=== PATIENT | female | born 1960 | race African-American/Black ===

== ENCOUNTER 2016-11-06 10:11 | Emergency (ER) | payer MEDICAID, MEDICARE, OTHER ==
[~2016-11-06] VITALS: Ht 162.6 cm; Wt 80.7 kg
[~2016-11-06 10:11] MED LIST: ACETAMINOPHEN-1 EAC1 ORAL; BENADRYL25 MG ORAL; DIPHENHYDRAMINE25 M1 ORAL; IBUPROFEN600 MG ORAL; NORCO 5-325 TA1 EAC1 ORAL; NORCO1 E1 ORAL; PERPHEN AMITRI PO; PERPHEN-AMITRI1 EAC1 PO; PERPHEN-AMITRI1 EAC3 PO; TRAMADOL HCL50 MG PO; TRIAVIL PO
[2016-11-06] MEDS ORDERED: PERPHEN-AMITRI1 EAC3 PO (10:31)
[2016-11-06 10:37] VITALS: BP 128/78
--- NOTE | 2016-11-06 11:22 | Emergency Room Report ---
History of Present Illness General Chief Complaint: Medication Refill Source: Patient Present Illness HPI 56-year-old female presents to ED requesting medication refill. Patient states she has history of depression and take psychiatric medications. States she ran out of medication 2 months ago and requires refill. Patient states he feels depressed but denies any suicidal or homicidal ideation. Denies hearing voices. Denies drug or alcohol use. No aggravating relieving factors. Denies any other associated symptoms Allergies: Coded Allergies: PENICILLIN G (Verified Allergy, Severe, RASH, 05/29/12) Patient History Past Medical History: psych hx Past Surgical History: none Pertinent Family History: none Social History: Denies: alcohol use, drug use, smoking Now: No Immunizations: UTD Reviewed Nursing Documentation: PMH: Agreed, PSxH: Agreed Nursing Documentation-PMH Past Medical History: No History, Except For History Of Psychiatric Problem: Yes - depression Hx Neurological Problems: No - Chronic knee pain Review of Systems All Other Systems: negative except mentioned in HPI Physical Exam Vital Signs Date Time Temp Pulse Resp B/P Pulse Ox O2 Delivery O2 Flow Rate FiO2 11/06/16 10:19 98.2 81 16 108/72 98 Room Air Sp02 EP Interpretation: reviewed, normal General Appearance: no apparent distress, alert, GCS 15, non-toxic Head: normocephalic, atraumatic Eyes: bilateral eye PERRL, bilateral eye normal inspection ENT: hearing grossly normal, normal pharynx, no angioedema, normal voice Neck: full range of motion, supple/symm/no masses Respiratory: chest non-tender, lungs clear, normal breath sounds, speaking full sentences Cardiovascular #1: regular rate, rhythm, no edema Cardiovascular #2: 2+ carotid (R), 2+ carotid (L), 2+ radial (R), 2+ radial (L) , 2+ dorsalis pedis (R), 2+ dorsalis pedis (L) Gastrointestinal: normal bowel sounds, non tender, soft, non-distended, no guarding, no rebound Rectal: deferred Genitourinary: normal inspection, no CVA tenderness Musculoskeletal: back normal, gait/station normal, normal range of motion, non- tender Neurologic: alert, oriented x3, responsive, motor strength/tone normal, sensory intact, speech normal Psychiatric: judgement/insight normal, memory normal, no suicidal/homicidal ideation, depressed affect, anxious Suicide Risk Assessment: Suicidal Ideation: No Had intent to initiate attempt: No Pt's plan for suicide attempt: No Has means to complete attempt: No Reflexes: 3+ bicep (R), 3+ bicep (L), 3+ tricep (R), 3+ tricep (L), 3+ knee (R) , 3+ knee (L) Skin: normal color, no rash, warm/dry, well hydrated Lymphatic: no adenopathy Medical Decision Making Diagnostic Impression: Primary Impression: Encounter for medication refill Additional Impression: Depression Qualified Codes: F32.9 - Major depressive disorder, single episode, unspecified ER Course 56-year-old female presents to ED refill of her medication. History of depression hospital course: After initial history and physical, I reviewed prior visits which document patient being prescribed medication. No evidence of SI or HI at this time Given that, I tell patient I will refill her medication Diagnosis-encounter for medication refill, depression Stable and discharged to home with prescription for perphenazine/amitryptaline. Followup with PMD. Return to ED if symptoms recur or worsen Last Vital Signs Date Time Temp Pulse Resp B/P Pulse Ox O2 Delivery O2 Flow Rate FiO2 11/06/16 10:37 89 16 128/78 99 Room Air 11/06/16 10:37 98.3 Status: improved Disposition: HOME, SELF-CARE Condition: Stable Scripts Perphenazine/Amitriptyline Hcl (PERPHEN-AMITRIP 4 MG-25 MG TAB) 1 Each Tablet 1 EACH PO TID, #90 TAB Prov: SUN CROSS M.D. 11/06/16 Referrals: NOT CHOSEN [facility]/,REFERRING (PCP) Patient Instructions: Medicine Refill at the Emergency Department SUN CROSS M.D. Nov 06, 2016 11:22
== END 2016-11-06 10:49 | disposition home or self-care (01) ==
LOC: EMR 10:36
DX: Z76.0 Encounter for issue of repeat prescription (principal); F32.9 Major depressive disorder, single episode, unspecified; M25.569 Pain in unspecified knee; G89.29 Other chronic pain; Z88.0 Allergy status to penicillin
CPT/HCPCS: 99283

== ENCOUNTER 2016-12-11 10:15 | Emergency (ER) | payer MEDICAID ==
[~2016-12-11] VITALS: Ht 162.6 cm; Wt 77.1 kg
[2016-12-11 10:46] VITALS: BP 121/88
[2016-12-11] MEDS ORDERED: IBUPROFEN600 MG ORAL (11:26)
[2016-12-11] MEDS ORDERED: PERPHEN-AMITRI1 EAC3 PO (11:26)
[2016-12-11 11:40] VITALS: BP 121/88
--- NOTE | 2016-12-12 07:46 | Emergency Room Report ---
History of Present Illness General Chief Complaint: Medication Refill Source: Patient Present Illness HPI Patient presents with request of medication refill Reports that she has depression and psychiatric diagnoses she has tried multiple outlets however has not been able to refill her medications And therefore presents for running out of her medications Denies any suicidal or homicidal thoughts denies any chest pain or short of breath she reports that she also has chronic low back pain and takes Motrin for that Denies any recent fall or trauma Allergies: Coded Allergies: PENICILLIN G (Verified Allergy, Severe, RASH, 05/29/12) Patient History Past Medical History: see triage record Pertinent Family History: none Last Menstrual Period: irreg Reviewed Nursing Documentation: PMH: Agreed, PSxH: Agreed Nursing Documentation-PMH Past Medical History: No History, Except For History Of Psychiatric Problem: Yes - Depression Hx Neurological Problems: No - Chronic knee pain Review of Systems All Other Systems: negative except mentioned in HPI Physical Exam Vital Signs Date Time Temp Pulse Resp B/P Pulse Ox O2 Delivery O2 Flow Rate FiO2 12/11/16 10:46 98.2 87 16 121/88 100 Room Air Sp02 EP Interpretation: reviewed, normal General Appearance: well appearing, no apparent distress Head: normocephalic, atraumatic Eyes: bilateral eye EOMI, bilateral eye PERRL ENT: hearing grossly normal, normal pharynx, TMs + canals normal, uvula midline Neck: full range of motion, supple, no meningismus, no bony tend Respiratory: lungs clear, normal breath sounds, no rhonchi, no respiratory distress, no retraction, no accessory muscle use Cardiovascular #1: normal peripheral pulses, regular rate, rhythm, no edema, no gallop, no JVD, no murmur Gastrointestinal: normal bowel sounds, non tender, soft, no mass, no organomegaly, non-distended, no guarding, no hernia, no pulsatile mass, no rebound Genitourinary: no CVA tenderness Musculoskeletal: normal inspection Neurologic: oriented x3, responsive, histology assistant III-XII nml as tested, motor strength/ tone normal, sensory intact Psychiatric: mood/affect normal - Denies any suicidal or homicidal thoughts Skin: normal color, no rash, warm/dry, palpation normal Lymphatic: normal inspection, no adenopathy Medical Decision Making Diagnostic Impression: Primary Impression: Depression Additional Impressions: Chronic knee pain Back pain ER Course It appears the patient has been doing better clinically with her medications Therefore the benefits of continuing her medication appear to outweigh discharge without medication Patient appears to be attempting multiple avenues of obtaining her psychiatric medications And understands the emergency department should not be her first attempt Last Vital Signs Date Time Temp Pulse Resp B/P Pulse Ox O2 Delivery O2 Flow Rate FiO2 12/11/16 11:40 98.2 16 121/88 100 Room Air 12/11/16 10:46 87 Status: improved Disposition: HOME, SELF-CARE Condition: Improved Scripts Ibuprofen* (MOTRIN*) 600 Mg Tablet 600 MG ORAL Q8H Y for For Pain, #20 TAB 0 Refills Prov: AYESHA SILVA D.O. 12/11/16 Perphenazine/Amitriptyline Hcl (PERPHEN-AMITRIP 4 MG-25 MG TAB) 1 Each Tablet 1 EACH PO DAILY, #20 TAB Prov: AYESHA SILVA D.O. 12/11/16 Referrals: NON PHYSICIAN (PCP) Patient Instructions: Depression, Adult, [id number] Additional Instructions: Patient is provided with the discharge instructions notified to follow up with primary doctor in the next 2-3 days otherwise return to the er with any worsening symptoms. Please note that this report is being documented using [employer] technology. This can lead to erroneous entry secondary to incorrect interpretation by the dictating instrument. AYESHA SILVA D.O. Dec 12, 2016 07:46
== END 2016-12-11 11:40 | disposition home or self-care (01) ==
LOC: EMR 11:15
DX: Z76.0 Encounter for issue of repeat prescription (principal); F32.9 Major depressive disorder, single episode, unspecified; Z88.0 Allergy status to penicillin; G89.29 Other chronic pain; M25.569 Pain in unspecified knee; M54.5 Low back pain
CPT/HCPCS: 99284

== ENCOUNTER → 2017-11-27 | Emergency (ER) | payer MEDICAID ==
[~2017-11-27] VITALS: Ht 162.6 cm; Wt 72.6 kg
[~2017-11-27] MED LIST changes: +AMITRIPTYLINE100 MG ORAL
[2017-11-27 11:47] VITALS: BP 153/90
--- NOTE | 2017-11-27 12:04 | Emergency Room Report ---
History of Present Illness General Chief Complaint: Medication Refill Present Illness HPI 57 yo female patient presents to ER requesting medication refill. Patient requesting refill of amitriptyline for depression. Reports taking 10 mg once a day. Reports has been unable to reach primary care provider. States she will followup with them next week. Also requesting Benadryl refill. Takes for itchy skin; reports lives in a community house. Denies rash, bleeding, ecchymosis, edema, erythema. Denies fever, chest pain, SOB. Denies thoughts of hurting herself or others. Denies drug or alcohol use. Allergies: Coded Allergies: PENICILLIN G (Verified Allergy, Severe, RASH, 05/29/12) Patient History Past Medical History: see triage record Reviewed Nursing Documentation: PMH: Agreed; PSxH: Agreed Nursing Documentation-PMH Hx Neurological Problems: No - Chronic knee pain Review of Systems All Other Systems: negative except mentioned in HPI Physical Exam Vital Signs Date Time Temp Pulse Resp B/P (MAP) Pulse Ox O2 Delivery O2 Flow Rate FiO2 11/27/17 11:40 98.1 90 18 153/90 99 Room Air 98.1 Sp02 EP Interpretation: reviewed, normal General Appearance: well appearing, no apparent distress, alert, GCS 15, non- toxic Head: normocephalic, atraumatic Eyes: bilateral eye normal inspection, bilateral eye PERRL ENT: hearing grossly normal, normal pharynx, no angioedema, normal voice, uvula midline, moist mucus membranes Neck: full range of motion Respiratory: lungs clear, normal breath sounds, no rhonchi, no respiratory distress, no accessory muscle use, no wheezing, speaking full sentences Cardiovascular #1: regular rate, rhythm, no edema Musculoskeletal: back normal, digits/nails normal, gait/station normal, normal range of motion, non-tender Neurologic: alert, oriented x3, responsive, motor strength/tone normal, sensory intact Psychiatric: mood/affect normal Skin: no rash Lymphatic: no adenopathy Medical Decision Making PA Attestation Dr. Damon is my supervising Physician whom patient management has been discussed with. Diagnostic Impression: Primary Impression: Encounter for medication refill ER Course Pt. presents to the ED requesting medication refill. Multiple differentials considered. Vital signs: are WNL, pt. is afebrile. Blood pressure mildly elevated. Denies chest pain, VENTURA, vision changes, abdominal pain. Instructed to followup with PCP for treatment. ORDERS: none required at this time, the diagnosis is clinical CURES report negative ED COURSE: Patient requesting refill of Amitriptyline and Benadryl medication. Repots current provider is a traveling provider and has not yet returned to area for followup appointment. Patient previously seen in ER for similar requests. Consult with Dr. Retino. ALBA to refill prescription. Informed patient that ER does not normally provide refill prescriptions, patient needs followup with PCP for treatment and monitoring of medication. Patient reports understanding. Do not believe patient is a danger to herself or others. DISCHARGE: At this time pt is stable for d/c to home. Patient is resting comfortably, in no acute distress, nontoxic appearing, talking without difficulty, smiling. Patient to take medications as instructed Will provide with patient care instructions and any necessary prescriptions. Care plan and follow-up instructions provided. Patient instructed to follow-up with primary care provider in 3 - 5 days. Patient questions asked and answered. Patient reports understanding and agreement to treatment plan. ER precautions given. Patient instructed to return to ER immediately for any new or worsening of symptoms including but not limited to increasing SOB, persistent fever. Last Vital Signs Date Time Temp Pulse Resp B/P (MAP) Pulse Ox O2 Delivery O2 Flow Rate FiO2 11/27/17 11:47 98.1 18 153/90 99 Room Air 98.1 11/27/17 11:40 90 Disposition: HOME, SELF-CARE Condition: Stable Scripts Diphenhydramine Hcl* (BENADRYL*) 25 Mg Capsule 25 MG ORAL Q6H PRN for Itching for 5 Days, #20 CAP Prov: Dinh Connelly 11/27/17 Perphenazine/Amitriptyline Hcl (PERPHEN-AMITRIP 4 MG-25 MG TAB) 1 Each Tablet 1 EACH PO DAILY for 5 Days, #5 TAB Prov: Dinh Connelly 11/27/17 Patient Instructions: Medicine Refill at the Emergency Department Additional Instructions: Followup with primary care provider in 3 -5 days. ER not able to fill prescriptions because requires followup and monitoring by primary care provider. Take medications as directed. Patient questions asked and answered. ER precautions given, patient instructed to return to ER immediately for any new or worsening of symptoms. Dinh Connelly Nov 27, 2017 12:04
[2017-11-27 12:50] VITALS: BP 148/89
== END | disposition home or self-care (01) ==
LOC: EMR 12:11
DX: Z76.0 Encounter for issue of repeat prescription (principal); Z88.0 Allergy status to penicillin; F32.9 Major depressive disorder, single episode, unspecified
CPT/HCPCS: 99284

== ENCOUNTER 2018-07-01 15:50 | Emergency (ER) | payer MEDICAID ==
[~2018-07-01] VITALS: Ht 162.6 cm; Wt 76.2 kg
[2018-07-01 16:13] VITALS: BP 159/88
--- NOTE | 2018-07-01 16:31 | Emergency Room Report ---
History of Present Illness General Chief Complaint: Medication Refill Source: Patient Present Illness HPI 57-year-old female presents to the emergency department complaining of multiple complaints. Patient reports pain, tenderness and soreness to the posterior ankle of the right foot which radiates down to the heel. Patient reports she has been doing a lot of excessive walking and at the end of days when she started noticing her symptoms. Patient denies taking medications for this. Patient also is stating that she has some right ear pain in addition to needing medication refills. Patient denies fevers, chills, ear discharge, changes in hearing, appreciable trauma or fall. No erythema of the ankle. denies open wounds. Allergies: Coded Allergies: PENICILLIN G (Verified Allergy, Severe, RASH, 05/29/12) IBUPROFEN (Verified Allergy, Unknown, 07/01/18) Patient History Past Medical History: see triage record Past Surgical History: none Pertinent Family History: none Reviewed Nursing Documentation: PMH: Agreed; PSxH: Agreed Nursing Documentation-PMH Hx Neurological Problems: No - depression Review of Systems All Other Systems: negative except mentioned in HPI Physical Exam Vital Signs Date Time Temp Pulse Resp B/P (MAP) Pulse Ox O2 Delivery O2 Flow Rate FiO2 07/01/18 16:02 98.2 77 18 159/88 97 Room Air Sp02 EP Interpretation: reviewed, normal General Appearance: no apparent distress, alert, GCS 15, non-toxic Head: normocephalic, atraumatic Eyes: bilateral eye normal inspection, bilateral eye PERRL ENT: hearing grossly normal, normal voice, TMs + canals normal, uvula midline, other - Right Canal is erythematous and macerated in appearance with purulent d/c noted, no TM involvement, no evidence of mastoiditis or preauricular LAD on PE Neck: full range of motion Respiratory: chest non-tender, lungs clear, normal breath sounds, speaking full sentences Cardiovascular #1: regular rate, rhythm, no edema, normal capillary refill Musculoskeletal: back normal, gait/station normal, normal range of motion, tender - posterior achilles ttp-mild, no swelling, bruising, obvious deformity or increased laxity. pt. ambulatory and can bear weight Neurologic: alert, oriented x3, responsive, motor strength/tone normal, sensory intact, speech normal, grossly normal Psychiatric: judgement/insight normal, memory normal, mood/affect normal, no suicidal/homicidal ideation, no delusions Skin: normal color, no rash, warm/dry, well hydrated Medical Decision Making PA Attestation Dr. Damon is my supervising Physician whom patient management has been discussed with. Diagnostic Impression: Primary Impression: Otitis externa Qualified Codes: H60.501 - Unspecified acute noninfective otitis externa, right ear Additional Impression: Achilles tendinitis, right leg ER Course 57-year-old female presents to the emergency department complaining of multiple complaints. Patient reports pain, tenderness and soreness to the posterior ankle of the right foot which radiates down to the heel. Patient reports she has been doing a lot of excessive walking and at the end of days when she started noticing her symptoms. Patient denies taking medications for this. Patient also is stating that she has some right ear pain in addition to needing medication refills. Patient denies fevers, chills, ear discharge, changes in hearing, appreciable trauma or fall. Pt. reports needs refill of anti-psych/ depressant and Ativan. Pt. denies Right Canal is erythematous and macerated in appearance with purulent d/c noted, no TM involvement, no evidence of mastoiditis or preauricular LAD on PE Ddx considered but are not limited to OM, OE, mastoiditis, TM perforation, FB, plantar fasciitis, tendonitis, ankle sprain, fracture, SI/HI, psychotic break just to name a few. Vital signs: are WNL, pt. is afebrile H&PE are most consistent with otitis externa, and tendonitis- imaging not warranted at this time, no bony ttp, no hx of fall and pt. herself does not suspect fracture. pr. does not meet [place] ankle criteria. ORDERS: none required at this time, the diagnosis is clinical -OTOSCOPY: Right Canal is erythematous and macerated in appearance with purulent d/c noted, no TM involvement, no evidence of mastoiditis or preauricular LAD on PE ED INTERVENTIONS: None required at this time. -Tylenol PO -Buspar--pt. requesting anti-anxiety medication. d/w pt. that I do not see that she is regularly rx'd Ativan and she needs to have this prescribed to her by a PCP or psychiatrist who will be handling her medication management. -PT will be given resources for mental health and primary care. -- I reviewed this pt. CURES report and there are no active prescriptions for controlled substances in [place] at this time. She also is not regularly rx'd ativan , I only see one prescription in the last 12 months. DISCHARGE: At this time pt. is stable for d/c to home. With Otic ABX. Will provide printed patient care instructions, and any necessary prescriptions. Care plan and follow up instructions have been discussed with the patient prior to discharge. Last Vital Signs Date Time Temp Pulse Resp B/P (MAP) Pulse Ox O2 Delivery O2 Flow Rate FiO2 07/01/18 16:13 98.2 78 18 159/88 97 Room Air Disposition: HOME, SELF-CARE Condition: Stable Scripts Ofloxacin (OFLOXACIN) 5 Ml Drops 3 DROP OT BID for 7 Days, #5 ML Prov: Mylene Jordan 07/01/18 Acetaminophen* (TYLENOL EXTRA STRENGTH*) 500 Mg Tablet 500 MG ORAL Q8H PRN for Prn Headache/Temp > 101, #20 TAB 0 Refills Prov: Mylene Jordan 07/01/18 Perphenazine/Amitriptyline Hcl (PERPHEN-AMITRIP 4 MG-25 MG TAB) 1 Each Tablet 1 EACH PO TID, #30 TAB Prov: Mylene Jordan 07/01/18 Patient Instructions: Achilles Tendinitis, Medicine Refill at the Emergency Department Additional Instructions: Take medications as directed. Limits use of the right ankle. Follow up with a Mental Health Specialist/ Psychiatrist in 3 days, even if your symptoms have resolved. --Please review [facility] resource information provided for Medication Management Return sooner to ED if new symptoms occur, or current symptoms become worse. - Please note that this Emergency Department Report was dictated using [employer] police officer technology software, occasionally this can lead to erroneous entry secondary to interpretation by the dictation equipment. Mylene Jordan Jul 01, 2018 16:31
[2018-07-01] MEDS ORDERED: TYLENOL EXTRA500 MG ORAL (16:49)
[2018-07-01] MEDS ORDERED: PERPHEN-AMITRI1 EAC3 PO (16:49)
[2018-07-01] MEDS ORDERED: OFLOXACIN5 ML OT (16:49)
[2018-07-01] MEDS ORDERED: BusPIRone 10mg Tab ORAL ONE (17:00)
[2018-07-01 17:06] VITALS: BP 159/88
== END 2018-07-01 17:06 | disposition home or self-care (01) ==
LOC: EMR 16:49
DX: H60.91 Unspecified otitis externa, right ear (principal); M76.61 Achilles tendinitis, right leg; Z88.0 Allergy status to penicillin; Z88.6 Allergy status to analgesic agent
CPT/HCPCS: 99283

== ENCOUNTER 2018-07-16 11:14 | Emergency (ER) | payer MEDICAID ==
[~2018-07-16] VITALS: Ht 162.6 cm; Wt 74.8 kg
[~2018-07-16 11:14] MED LIST changes: +OFLOXACIN5 ML OT; +TYLENOL EXTRA500 MG ORAL
[2018-07-16 11:20] VITALS: BP 161/99
[2018-07-16] MEDS ORDERED: LORazepam 1mg tab ORAL ONE (12:30)
--- NOTE | 2018-07-16 13:01 | Emergency Room Report ---
History of Present Illness General Chief Complaint: Medication Refill Source: Patient, Medical Record Present Illness HPI 57-year-old female comes ER complaining that she needs her refill of perphenazine/amitriptyline. She reports she's come in the past and got refills , I reported I do not feel comfortable giving this her but I will talk to a psychiatrist. The patient reports she is going become very upset if she does not get the refill from us. Patient is not suicidal or homicidal, she is not hearing voices currently, she does report she is very agitated. Allergies: Coded Allergies: PENICILLIN G (Verified Allergy, Severe, RASH, 05/29/12) IBUPROFEN (Verified Allergy, Unknown, 07/01/18) Patient History Past Medical History: see triage record Last Menstrual Period: menopause Reviewed Nursing Documentation: PMH: Agreed; PSxH: Agreed Nursing Documentation-PMH Past Medical History: No History, Except For Hx Neurological Problems: No - depression Review of Systems All Other Systems: negative except mentioned in HPI Physical Exam Vital Signs Date Time Temp Pulse Resp B/P (MAP) Pulse Ox O2 Delivery O2 Flow Rate FiO2 07/16/18 11:20 98.1 83 18 161/99 98 Room Air Sp02 EP Interpretation: reviewed, normal General Appearance: no apparent distress, alert, non-toxic Head: normocephalic Eyes: bilateral eye normal inspection, bilateral eye PERRL, bilateral eye EOMI ENT: normal ENT inspection, hearing grossly normal, normal pharynx, no angioedema, normal voice, moist mucus membranes Neck: normal inspection, full range of motion, supple, supple/symm/no masses Respiratory: chest non-tender, lungs clear, normal breath sounds, chest symmetrical, palpation of chest normal Cardiovascular #1: normal peripheral pulses, regular rate, rhythm Cardiovascular #2: 2+ radial (R), 2+ radial (L) Gastrointestinal: normal inspection, non tender, soft, no mass, no guarding, no rebound Rectal: deferred Genitourinary: normal inspection, no CVA tenderness Musculoskeletal: back normal, gait/station normal, normal range of motion, non- tender, no calf tenderness Neurologic: alert, responsive, jewelry sales representative III-XII nml as tested, motor strength/tone normal, sensory intact, speech normal Psychiatric: judgement/insight normal, memory normal, no suicidal/homicidal ideation, anxious Skin: normal color, no rash, warm/dry, normal turgor Lymphatic: no adenopathy Medical Decision Making Diagnostic Impression: Primary Impression: Anxiety ER Course Patient was given 1 mg of Ativan, to keep her calm while I awaited consultation from Dr. Soni, because I did not feel comfortable giving her a refill for her medication, Dr. Soni then reported to me that she did not think it was a good idea to give amitriptyline because it is a dangerous medication. Patient does have an outpatient psychiatrist, will attempt to dc. Patient left before I could talk to her again and give paperwork. Last Vital Signs Date Time Temp Pulse Resp B/P (MAP) Pulse Ox O2 Delivery O2 Flow Rate FiO2 07/16/18 11:20 98.1 83 18 161/99 98 Room Air Disposition: HOME, SELF-CARE Condition: Stable Referrals: [facility],REFERR[facility] (PCP) ARPIT CASTILLO M.D Jul 16, 2018 13:01
[2018-07-16 17:12] VITALS: BP 161/99
[2018-07-16 19:06] VITALS: BP 160/100
== END 2018-07-16 13:00 | disposition home or self-care (01) ==
LOC: EMR 12:20
DX: F41.9 Anxiety disorder, unspecified (principal); Z76.0 Encounter for issue of repeat prescription; Z88.0 Allergy status to penicillin; Z88.6 Allergy status to analgesic agent
CPT/HCPCS: 99282

== ENCOUNTER 2018-07-20 09:37 | Emergency (ER) | payer MEDICAID ==
[~2018-07-20] VITALS: Ht 162.6 cm; Wt 74.4 kg
[2018-07-20 09:41] VITALS: BP 143/83
[2018-07-20] MEDS ORDERED: PERPHEN-AMITRI1 EAC3 PO (10:12)
[2018-07-20] MEDS ORDERED: DEBROX15 M1 BOTH EARS (10:15)
[2018-07-20 10:21] VITALS: BP 143/83
--- NOTE | 2018-07-20 13:32 | Emergency Room Report ---
History of Present Illness General Chief Complaint: Medication Refill Source: Patient, Medical Record Present Illness HPI Patient has a history depression which is chronic and difficulty with obtaining follow-up. Fairly patient has difficulty with follow-up because of insurance reasons. Patient has not taking her psychiatric medications for the last couple weeks and she is requesting medication refill. Patient denies any suicidal homicidal patient denies any auditory or visual hallucinations. No other complaints are noted. Symptoms noted to be moderate. Review medical records show the patient was here before last week for this but did not receive any medications at that time. And patient has been unable to obtain follow-up. No other modifying factors. No other associated signs and symptoms. No other complaints were noted. Allergies: Coded Allergies: PENICILLIN G (Verified Allergy, Severe, RASH, 05/29/12) IBUPROFEN (Verified Allergy, Unknown, 07/01/18) Patient History Past Medical History: none, depression Past Surgical History: none Family History: none Last Menstrual Period: yrs ago Reviewed Nursing Documentation: PMH: Agreed; PSxH: Agreed Nursing Documentation-PMH Past Medical History: No History, Except For Hx Neurological Problems: No - depression Review of Systems All Other Systems: negative except mentioned in HPI Physical Exam Vital Signs Date Time Temp Pulse Resp B/P (MAP) Pulse Ox O2 Delivery O2 Flow Rate FiO2 07/20/18 09:41 98.1 72 18 143/83 100 Room Air Sp02 EP Interpretation: reviewed, normal General Appearance: normal inspection, alert/responsive, no apparent distress, non-toxic Head: normocephalic Eyes: normal eye exam, PERRL ENT: normal ENT inspection Neck: supple/symm/no masses Respiratory: normal inspection, effort normal, no wheezing Cardiovascular: regular rate, rhythm Gastrointestinal: non-tender, non-distended, normal bowel sounds Genitourinary: no CVA tenderness Musculoskeletal: normal inspection, normal ROM Neurologic: normal inspection Psychiatric: normal inspection, judgment & insight normal, anxious, other - Depressed Skin: normal inspection, no rash Medical Decision Making Diagnostic Impression: Primary Impression: Encounter for medication refill Additional Impression: Depression ER Course Patient presents emergency department today complaining of needing medication refill. Patient denies suicidal or homicidal. She is appropriate. Patient apparently has been having difficulty getting her medications or seeing psychiatrist. Review of records show the patient's been here multiple times asked for medication refill. I contacted [facility] and patient indeed does take perphenazine/amitriptyline chronically. Therefore I gave patient a prescription for this I advise however she needed a follow-up outpatient with psychiatry. Patient voiced understanding.Patient is advised to return the emergency room for any worsening symptoms and as needed. Last Vital Signs Date Time Temp Pulse Resp B/P (MAP) Pulse Ox O2 Delivery O2 Flow Rate FiO2 07/20/18 10:21 98.1 72 18 143/83 100 Room Air Status: improved Disposition: HOME, SELF-CARE Condition: Stable Scripts Carbamide Peroxide (DEBROX) 15 Ml Drops 5 DROP BOTH EARS TWICE A DAY for 4 Days, ML 0 Refills Prov: Rick Asher MD 07/20/18 Perphenazine/Amitriptyline Hcl (PERPHEN-AMITRIP 4 MG-25 MG TAB) 1 Each Tablet 1 EACH PO TID for 30 Days, TAB Prov: Rick Asher MD 07/20/18 Referrals: [facility]ERR[facility] (PCP) Patient Instructions: Depression, Adult, [facility] Rick Asher MD Jul 20, 2018 13:32
== END 2018-07-20 10:22 | disposition home or self-care (01) ==
LOC: EMR 10:04
DX: Z76.0 Encounter for issue of repeat prescription (principal); F32.9 Major depressive disorder, single episode, unspecified; Z88.0 Allergy status to penicillin; Z88.6 Allergy status to analgesic agent
CPT/HCPCS: 99282

== ENCOUNTER 2018-08-23 09:18 | Emergency (ER) | payer MEDICAID ==
[~2018-08-23] VITALS: Ht 162.6 cm; Wt 72.6 kg
[~2018-08-23 09:18] MED LIST changes: +DEBROX15 M1 BOTH EARS
[2018-08-23 09:30] VITALS: BP 146/83
--- NOTE | 2018-08-23 10:29 | Emergency Room Report ---
History of Present Illness General Chief Complaint: Medication Refill Source: Patient Present Illness HPI Patient states she has been without her medications for the past 5 days. She states that her primary care physician just stopped practicing. She is working on a new primary care physician. She states she has been on the same medication for 25 years. She would like a refill of her medications until she can see a new primary care physician. She has no other complaints. Allergies: Coded Allergies: PENICILLIN G (Verified Allergy, Severe, RASH, 05/29/12) IBUPROFEN (Verified Allergy, Unknown, 07/01/18) Patient History Past Medical History: see triage record, psych hx - Depression Social History: Denies: smoking, alcohol use, drug use Last Menstrual Period: na Reviewed Nursing Documentation: PMH: Agreed; PSxH: Agreed Nursing Documentation-PMH Past Medical History: No History, Except For Hx Neurological Problems: No - depression Review of Systems All Other Systems: negative except mentioned in HPI Physical Exam Vital Signs Date Time Temp Pulse Resp B/P (MAP) Pulse Ox O2 Delivery O2 Flow Rate FiO2 08/23/18 09:22 98.2 70 16 146/83 99 Room Air Sp02 EP Interpretation: reviewed, normal General Appearance: no apparent distress, alert, GCS 15, non-toxic Head: normocephalic, atraumatic Eyes: bilateral eye normal inspection, bilateral eye PERRL ENT: hearing grossly normal, normal pharynx, no angioedema, normal voice Neck: normal inspection, full range of motion Respiratory: no respiratory distress, no retraction, no accessory muscle use, speaking full sentences Rectal: deferred Musculoskeletal: back normal, gait/station normal, normal range of motion, non- tender Neurologic: alert, oriented x3, responsive, motor strength/tone normal, sensory intact, speech normal Psychiatric: judgement/insight normal, memory normal, mood/affect normal, no suicidal/homicidal ideation Skin: normal color, no rash, warm/dry, well hydrated Medical Decision Making Diagnostic Impression: Primary Impression: Encounter for medication refill ER Course The patient presents for refill of her amitriptyline. I will go ahead and refill this. She was educated on the importance of her primary care physician and close follow-up and close monitoring when she is on psychotropic medications. She indicated understanding and intention to do so. Last Vital Signs Date Time Temp Pulse Resp B/P (MAP) Pulse Ox O2 Delivery O2 Flow Rate FiO2 08/23/18 09:30 98.2 16 146/83 99 Room Air 08/23/18 09:22 70 Status: improved Disposition: HOME, SELF-CARE Condition: Stable Patient Instructions: Medicine Refill at the Emergency Department Luna Rodriguez DO Aug 23, 2018 10:29
[2018-08-23] MEDS ORDERED: PERPHEN-AMITRI1 EAC3 PO (10:30)
[2018-08-23 10:33] VITALS: BP 148/90
== END 2018-08-23 10:33 | disposition home or self-care (01) ==
LOC: EMR 10:25
DX: Z76.0 Encounter for issue of repeat prescription (principal); Z88.0 Allergy status to penicillin; Z88.6 Allergy status to analgesic agent
CPT/HCPCS: 99282

== ENCOUNTER 2018-10-26 11:53 | Emergency (ER) | payer MEDICAID ==
[~2018-10-26] VITALS: Ht 162.6 cm; Wt 74.8 kg
[2018-10-26 11:55] VITALS: BP 124/83
--- NOTE | 2018-10-26 12:31 | Emergency Room Report ---
History of Present Illness General Chief Complaint: Medication Refill Source: Patient Present Illness HPI 58-year-old female patient presents the ER requesting refill of medication that she takes for depression. States she is been taking medication for the past 25 years. Denies side effects associated with medication use. Reports she has not taken the medication for the past few weeks because she does not have a primary care provider that she can follow-up with because of the previous provider treating her was in a mobile unit and they have left. Denies fever, chest pain or shortness of breath. Denies thoughts of hurting herself or others. Reports that she takes pheniramine/amitriptyline daily. States she would have come in sooner but she was trying to "ride it out". Denies thoughts of hurting herself or others. Denies other aggravating or relieving factors. Allergies: Coded Allergies: PENICILLIN G (Verified Allergy, Severe, RASH, 10/26/18) IBUPROFEN (Verified Allergy, Unknown, 10/26/18) Patient History Past Medical History: see triage record Last Menstrual Period: 1 YEAR AGO Now: No Reviewed Nursing Documentation: PMH: Agreed; PSxH: Agreed Nursing Documentation-PMH Past Medical History: No History, Except For History Of Psychiatric Problem: Yes - DEPRESSION Hx Neurological Problems: No - depression Review of Systems All Other Systems: negative except mentioned in HPI Physical Exam Vital Signs Date Time Temp Pulse Resp B/P (MAP) Pulse Ox O2 Delivery O2 Flow Rate FiO2 10/26/18 11:55 98.2 76 16 124/83 99 Room Air Sp02 EP Interpretation: reviewed, normal General Appearance: well appearing, no apparent distress, alert, GCS 15, non- toxic Head: normocephalic, atraumatic Eyes: bilateral eye normal inspection, bilateral eye PERRL Neck: full range of motion Respiratory: lungs clear, normal breath sounds, no rhonchi, no respiratory distress, no accessory muscle use, no wheezing, speaking full sentences Cardiovascular #1: regular rate, rhythm, no edema Genitourinary: no CVA tenderness Musculoskeletal: back normal, digits/nails normal, gait/station normal, normal range of motion, non-tender Psychiatric: mood/affect normal Skin: no rash Medical Decision Making PA Attestation Dr. Montoya is my supervising Physician whom patient management has been discussed with. Diagnostic Impression: Primary Impression: Encounter for medication refill ER Course Pt. presents to the ED requesting prescription refill. Multiple differentials were considered. Vital signs: are WNL, pt. is afebrile ORDERS: PE benign Informed patient will provide medication refill however she needs to follow-up with primary care provider or mental health professional to discuss treatment and follow-up plan. Contact primary care provider for further treatment. Informed patient ER cannot provide refills in the future; followup, management and prescription of long-term medications must be performed by primary care provider. ER precautions given. DISCHARGE: At this time pt is stable for d/c to home. Patient is resting comfortably, in no acute distress, nontoxic appearing, talking without difficulty. Patient to take medications as instructed Will provide with patient care instructions and any necessary prescriptions. Care plan and follow-up instructions provided. Patient instructed to follow-up with primary care provider in 3 - 5 days. Patient questions asked and answered. Patient reports understanding and agreement to treatment plan. ER precautions given. Patient instructed to return to ER immediately for any new or worsening of symptoms including but not limited to increasing SOB, persistent fever. - Please note that this Emergency Department Report was dictated using Medigodental assisting instructor technology software, occasionally this can lead to erroneous entry secondary to interpretation by the dictation equipment. Last Vital Signs Date Time Temp Pulse Resp B/P (MAP) Pulse Ox O2 Delivery O2 Flow Rate FiO2 10/26/18 11:55 98.2 16 124/83 99 Room Air 10/26/18 11:55 76 Disposition: HOME, SELF-CARE Condition: Stable Scripts Perphenazine/Amitriptyline Hcl (PERPHEN-AMITRIP 4 MG-25 MG TAB) 1 Each Tablet 1 EACH PO TID, #60 TAB 1 Refill Prov: Dinh Connelly 10/26/18 Patient Instructions: Medicine Refill at the Emergency Department Additional Instructions: Followup with primary care provider in 3 -5 days. ER cannot provide refills in the future, follow-up treatment plan and long-term care needs to be established with primary care provider and/or mental health professional. Take medications as directed. Patient questions asked and answered. ER precautions given, patient instructed to return to ER immediately for any new or worsening of symptoms. Dinh Connelly Oct 26, 2018 12:31
[2018-10-26] MEDS ORDERED: PERPHEN-AMITRI1 EAC3 PO (12:32)
--- NOTE | 2018-10-26 12:40 | NUR ---
ED Nurse Note: Pt was seen due to medication refill. Pt cleared by Health Care Provider for discharge. DC instructions/prescription was given and explained to the pt and verbalized understanding of teachings. All medical devices such as ID band removed. Pt is AAO x4, ambulatory and left with all personal belongings.
== END 2018-10-26 12:40 | disposition home or self-care (01) ==
LOC: EMR 12:20
DX: Z76.0 Encounter for issue of repeat prescription (principal); F32.9 Major depressive disorder, single episode, unspecified; Z88.0 Allergy status to penicillin; Z88.6 Allergy status to analgesic agent
CPT/HCPCS: 99282

== ENCOUNTER 2018-12-10 13:28 | Emergency (ER) | payer MEDICAID ==
[~2018-12-10] VITALS: Ht 162.6 cm; Wt 75.7 kg
[2018-12-10 13:45] VITALS: BP 144/83
--- NOTE | 2018-12-10 14:17 | Emergency Room Report ---
History of Present Illness General Chief Complaint: Medication Refill Source: Patient, Medical Record Present Illness HPI 58-year-old female patient presents the ER requesting refill of her depression medication. Patient has previously been seen here multiple times requesting refills of medication. States that she finally was able to schedule a follow- up appointment with a new primary care provider but is not for another month. States she has not taken medication for the past 5 days. States that she has not been able to schedule sooner appointment or go to another mental health clinic. Denies thoughts of hurting herself or others. Also requesting refill of Benadryl for congestion and pruritus symptoms. Denies rash Allergies: Coded Allergies: PENICILLIN G (Verified Allergy, Severe, RASH, 10/26/18) IBUPROFEN (Verified Allergy, Unknown, 10/26/18) Patient History Past Medical History: see triage record Reviewed Nursing Documentation: PMH: Agreed; PSxH: Agreed Nursing Documentation-PMH Past Medical History: No History, Except For Hx Neurological Problems: No - depression Review of Systems All Other Systems: negative except mentioned in HPI Physical Exam Vital Signs Date Time Temp Pulse Resp B/P (MAP) Pulse Ox O2 Delivery O2 Flow Rate FiO2 12/10/18 13:45 98.2 63 14 144/83 99 Room Air Sp02 EP Interpretation: reviewed, normal General Appearance: well appearing, no apparent distress, alert, GCS 15, non- toxic Head: normocephalic, atraumatic Eyes: bilateral eye normal inspection, bilateral eye PERRL ENT: hearing grossly normal, normal pharynx, no angioedema, normal voice, uvula midline, moist mucus membranes Neck: full range of motion, no meningismus, no bony tend Respiratory: lungs clear, normal breath sounds, no rhonchi, no respiratory distress, no accessory muscle use, no wheezing, speaking full sentences Cardiovascular #1: regular rate, rhythm, no edema Neurologic: alert, oriented x3, responsive, motor strength/tone normal, sensory intact Psychiatric: mood/affect normal Skin: no rash Medical Decision Making PA Attestation Dr. Narayan is my supervising Physician whom patient management has been discussed with. Diagnostic Impression: Primary Impression: Encounter for medication refill ER Course Pt. presents to the ED requesting prescription refill. Multiple differentials were considered. Vital signs: are WNL, pt. is afebrile ORDERS: PE benign. Informed patient would not provide refill of her depression medication. Patient has been repeatedly told that she would not get a refill of her medication if she follows up here. Advised patient follow-up with mental health urgent care, contact information provided. Provided with refill of Benadryl medication. Do not believe patient is danger to herself or others at this time, okay for outpatient follow-up and treatment. Contact primary care provider for further treatment. Informed patient ER cannot provide refills in the future; followup, management and prescription of long-term medications must be performed by primary care provider. ER precautions given. DISCHARGE: At this time pt is stable for d/c to home. Patient is resting comfortably, in no acute distress, nontoxic appearing, talking without difficulty. Patient to take medications as instructed Will provide with patient care instructions and any necessary prescriptions. Care plan and follow-up instructions provided. Patient instructed to follow-up with primary care provider in 3 - 5 days. Patient questions asked and answered. Patient reports understanding and agreement to treatment plan. ER precautions given. Patient instructed to return to ER immediately for any new or worsening of symptoms including but not limited to increasing SOB, persistent fever. - Please note that this Emergency Department Report was dictated using Biomonitorsoap drier operator technology software, occasionally this can lead to erroneous entry secondary to interpretation by the dictation equipment. Last Vital Signs Date Time Temp Pulse Resp B/P (MAP) Pulse Ox O2 Delivery O2 Flow Rate FiO2 12/10/18 13:45 98.2 14 144/83 99 Room Air 12/10/18 13:45 63 Status: improved Disposition: HOME, SELF-CARE Condition: Stable Scripts Diphenhydramine Hcl* (BENADRYL*) 25 Mg Capsule 25 MG ORAL Q6H PRN for Itching, #30 CAP Prov: Dinh Connelly 12/10/18 Patient Instructions: Medicine Refill at the Emergency Department Additional Instructions: Followup with primary care provider in 3 -5 days. Follow-up with mental health urgent care for refill of medication. Take medications as directed. Patient questions asked and answered. ER precautions given, patient instructed to return to ER immediately for any new or worsening of symptoms. Dinh Connelly Dec 10, 2018 14:17
[2018-12-10] MEDS ORDERED: BENADRYL25 MG ORAL (14:48)
[2018-12-10 14:55] VITALS: BP 133/78
--- NOTE | 2018-12-10 14:56 | NUR ---
Patient was evaluated, treated and discharged with aftercare instructions by MD/PA
== END 2018-12-10 14:56 | disposition home or self-care (01) ==
LOC: EMR 14:13
DX: Z76.0 Encounter for issue of repeat prescription (principal); F32.9 Major depressive disorder, single episode, unspecified; Z88.0 Allergy status to penicillin; Z88.6 Allergy status to analgesic agent
CPT/HCPCS: 99282

== ENCOUNTER → 2019-09-26 | Emergency (ER) | payer MEDICAID ==
[~2019-09-26] VITALS: Ht 162.6 cm; Wt 76.2 kg
[2019-09-26 12:49] VITALS: BP 139/81
--- NOTE | 2019-09-26 12:59 | NUR ---
ED Nurse Note: PT CAME IN FOR MEDICATION REFILL OF PERPHENAZINE/AMITRIPTYLINE 4MG/25MG. STATES HER MD IS OUT OF TOWN. AAO X4, AMBULATORY.
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
[2019-09-26 15:08] VITALS: BP 112/75
--- NOTE | 2019-09-26 15:08 | NUR ---
ER DISCHARGE NOTE: Patient is cleared to be discharged per PA, pt is aox4, on room air, with stable vital signs. Pt left without signing DC papers. No IV acces pt is able to ambulate with steady gait. pt took all belongings.
== END | disposition home or self-care (01) ==
LOC: EMR 13:41
DX: F32.9 Major depressive disorder, single episode, unspecified (principal); Z76.0 Encounter for issue of repeat prescription; Z88.0 Allergy status to penicillin; Z88.6 Allergy status to analgesic agent
CPT/HCPCS: 99282

== ENCOUNTER 2019-10-19 15:22 | Emergency (ER) | payer MEDICAID ==
[~2019-10-19] VITALS: Ht 162.6 cm; Wt 77.1 kg
--- NOTE | 2019-10-19 15:42 | NUR ---
ED Nurse Note: Pt walked in from home c/o shortness of breath and cough x 1 week. Pt also wants refull of anti-depressant as she is not going to see her new MD for 30 more days. Respirations are even and labored with exertion. Vitals stable as documented.
[2019-10-19 15:43] VITALS: BP 147/86
--- NOTE | 2019-10-19 16:17 | Emergency Room Report ---
History of Present Illness General Chief Complaint: Upper Respiratory Illness Source: Patient Present Illness HPI 59-year-old female presents to the emergency department requesting medication refill for her depression medication. Patient states that she has been out for several days now she is not currently seeing a psychiatrist and her last prescription was a small quantity which was also given here in the emergency department last visit. Patient denies SI or HI. Patient denies worsening of her symptoms. Patient reports she does have social work program coordinator on her case and she is in the process of getting new doctor. Patient also reports 4 out of 10 severity cough that is nonproductive with associated sneezing and rhinorrhea. She denies fevers, chills, neck pain/stiffness, sore throat, photophobia. Patient reports dry cough primarily at night. She denies dyspnea/shortness of breath, chest pain or palpitations. Allergies: Coded Allergies: PENICILLIN G (Verified Allergy, Severe, RASH, 10/26/18) IBUPROFEN (Verified Allergy, Unknown, 10/26/18) Patient History Past Medical History: see triage record, psych hx - depression Past Surgical History: none Pertinent Family History: none Social History: Reports: smoking Now: No Reviewed Nursing Documentation: PMH: Agreed; PSxH: Agreed Nursing Documentation-PMH Past Medical History: No History, Except For Hx Neurological Problems: No - depression Review of Systems All Other Systems: negative except mentioned in HPI Physical Exam Vital Signs Date Time Temp Pulse Resp B/P (MAP) Pulse Ox O2 Delivery O2 Flow Rate FiO2 10/19/19 15:34 98.1 86 19 147/86 (106) 97 Room Air Sp02 EP Interpretation: reviewed, normal General Appearance: no apparent distress, alert, GCS 15, non-toxic Head: normocephalic, atraumatic Eyes: bilateral eye normal inspection, bilateral eye PERRL ENT: hearing grossly normal, normal voice Neck: full range of motion Respiratory: chest non-tender, lungs clear, normal breath sounds, no respiratory distress, no accessory muscle use, no wheezing, speaking full sentences Cardiovascular #1: regular rate, rhythm, normal capillary refill Musculoskeletal: normal range of motion, gait/station normal, non-tender Neurologic: alert, motor strength/tone normal, oriented x3, sensory intact, responsive, speech normal Psychiatric: judgement/insight normal Skin: no rash, normal color Lymphatic: no adenopathy Medical Decision Making PA Attestation Dr. Kiser is my supervising Physician whom patient management has been discussed with. Diagnostic Impression: Primary Impression: Cough in adult Additional Impression: Medication refill ER Course 59-year-old female presents to the emergency department requesting medication refill for her depression medication. Patient states that she has been out for several days now she is not currently seeing a psychiatrist and her last prescription was a small quantity which was also given here in the emergency department last visit. Patient denies SI or HI. Patient denies worsening of her symptoms. Patient reports she does have social work program coordinator on her case and she is in the process of getting new doctor. Patient also reports 4 out of 10 severity cough that is nonproductive with associated sneezing and rhinorrhea. She denies fevers, chills, neck pain/stiffness, sore throat, photophobia. Patient reports dry cough primarily at night. She denies dyspnea/shortness of breath, chest pain or palpitations. Ddx considered but are not limited to: drug seeking, OD, cough, URI, pneumonia, noncompliance with previous follow-up instructions. Vital signs: are WNL, pt. is afebrile H&PE are most consistent with primary need for medication refill. Patient also complains of cough she is nontoxic in appearance in no acute distress does not demonstrate respiratory distress. ORDERS: none required at this time, the diagnosis is clinical ED INTERVENTIONS: None required at this time. I discussed with this patient the importance of having further medication refills prescribed by psychiatric professional and I also reiterated that I will give her [facility] mental health urgent care information which is a free resource that is open 30/03 regardless of ability to pay/insurance. DISCHARGE: At this time pt. is stable for d/c to home. Will provide printed patient care instructions, and any necessary prescriptions. Care plan and follow up instructions have been discussed with the patient prior to discharge. Last Vital Signs Date Time Temp Pulse Resp B/P (MAP) Pulse Ox O2 Delivery O2 Flow Rate FiO2 10/19/19 15:43 98.0 84 19 147/86 97 Room Air Disposition: HOME, SELF-CARE Condition: Stable Scripts Acetaminophen* (TYLENOL EXTRA STRENGTH*) 500 Mg Tablet 500 MG ORAL Q6H, #30 TAB 0 Refills Prov: Mylene Jordan 10/19/19 Cetirizine Hcl* (ZYRTEC*) 10 Mg Tablet 10 MG ORAL DAILY, #30 TAB 0 Refills Prov: Mylene Jordan 10/19/19 Perphenazine/Amitriptyline Hcl (PERPHEN-AMITRIP 4 MG-25 MG TAB) 1 Each Tablet 1 EACH PO TID for 5 Days, #15 TAB Prov: Mylene Jordan 10/19/19 Patient Instructions: Cough, Adult, [id number], Medicine Refill at the Emergency Department Additional Instructions: Take medications as directed. Follow up with a Mental Health Specialist/ Psychiatrist in 3 days, even if your symptoms have resolved. --Please review [facility] resource information provided Return sooner to ED if new symptoms occur, or current symptoms become worse. - Please note that this Emergency Department Report was dictated using [employer] pilot technology software, occasionally this can lead to erroneous entry secondary to interpretation by the dictation equipment. Mylene Jordan Oct 19, 2019 16:17
[2019-10-19] MEDS ORDERED: TYLENOL EXTRA500 MG ORAL (16:21)
[2019-10-19] MEDS ORDERED: ZYRTEC10 MG ORAL (16:21)
[2019-10-19] MEDS ORDERED: PERPHEN-AMITRI1 EAC3 PO (16:21)
[2019-10-19 16:30] VITALS: BP 146/79
--- NOTE | 2019-10-19 16:30 | NUR ---
ER DISCHARGE NOTE: Patient is cleared to be discharged per ERMD, pt is aox4, on room air, with stable vital signs as documented. pt was given dc and prescription instructions and was able to verbalize understanding. pt id band removed. pt is able to ambulate with steady gait. pt took all belongings.
== END 2019-10-19 16:30 | disposition home or self-care (01) ==
LOC: EMR 16:27
DX: Z76.0 Encounter for issue of repeat prescription (principal); R05 Cough; F32.9 Major depressive disorder, single episode, unspecified; Z88.0 Allergy status to penicillin; Z88.6 Allergy status to analgesic agent
CPT/HCPCS: 99282

== ENCOUNTER 2020-01-03 12:25 | Emergency (ER) | payer MEDICAID ==
[~2020-01-03] VITALS: Ht 162.6 cm; Wt 77.1 kg
[~2020-01-03 12:25] MED LIST changes: +ZYRTEC10 MG ORAL
--- NOTE | 2020-01-03 12:40 | NUR ---
ED Nurse Note: Patient walked into ED from home c/o 8/10 knee pain since last week. Patient states she twisted her knee on accident while walking. Patient limps on her left leg while walking. Patient AxO x 4, patient resting in chair.
[2020-01-03] MEDS ORDERED: Acetaminophen 500mg (ES) tab ORAL ONE (13:00)
[2020-01-03 13:06] VITALS: BP 134/79
[2020-01-03] MEDS ORDERED: TYLENOL EXTRA500 MG ORAL (13:12)
[2020-01-03] MEDS ORDERED: PERPHEN-AMITRI1 EAC3 PO (13:12)
[2020-01-03] MEDS ORDERED: VOLTAREN100 G1 TP (13:12)
[2020-01-03 13:18] VITALS: BP 134/79
--- NOTE | 2020-01-03 13:18 | NUR ---
ER DISCHARGE NOTE: Patient is cleared to be discharged per Dr. Kiser, pt is aox4, on room air, with stable vital signs. Patient verbalized understanding of Rx and DC instructions. Patient walks with steady gait, walked out of the ED with all belongings.
--- NOTE | 2020-01-03 13:20 | NUR ---
BINDER CHAINSTITCH NOTE Pt requested to meet w/ SW. This SW met w/ pt before DC. Pt presents as A&O4x. Pt resides w/ her male friend at [address] [place] [id number]. PT reports she has been homeless and currently staying w/ her friend. However, she plans to move out from the friend's place soon d/t conflict. Pt receives food stamp only. SW provided the emergency fdc list and the community resource packet. SW encouraged pt to contact homeless agencies eg. [facility] or [facility] to start case management for permanent housing. SW also encouraged pt to contact [employer] for possible hotel/motel vouchers. Pt verbalized understanding. No other concern/needs expressed.
--- NOTE | 2020-01-06 06:30 | Emergency Room Report ---
History of Present Illness General Chief Complaint: Pain Source: Patient Present Illness HPI 59-year-old female presents with left knee pain x1 week. Denies any fall but states that she twisted her knee once while walking. Has had pain since. Throbbing, 7 out of 10, nonradiating. Is able to bear weight. Denies any other injuries. No other aggravating relieving factors. Denies any other associated symptoms Allergies: Coded Allergies: PENICILLIN G (Verified Allergy, Severe, RASH, 10/26/18) IBUPROFEN (Verified Allergy, Unknown, 10/26/18) COVID-19 Screening Contact w/high risk pt: No Recent Travel to affected area: No Experienced COVID-19 symptoms?: No Patient History Past Medical History: none Past Surgical History: none Pertinent Family History: none Social History: Denies: smoking, alcohol use, drug use Last Menstrual Period: na Now: No Immunizations: UTD Reviewed Nursing Documentation: PMH: Agreed; PSxH: Agreed Nursing Documentation-PMH Past Medical History: No Stated History Hx Neurological Problems: No - depression Review of Systems All Other Systems: negative except mentioned in HPI Physical Exam Vital Signs Date Time Temp Pulse Resp B/P (MAP) Pulse Ox O2 Delivery O2 Flow Rate FiO2 01/03/20 12:35 98.2 90 18 134/79 (97) 98 Room Air Sp02 EP Interpretation: reviewed, normal General Appearance: no apparent distress, alert, GCS 15, non-toxic Head: normocephalic, atraumatic Eyes: bilateral eye normal inspection, bilateral eye PERRL ENT: hearing grossly normal, normal pharynx, no angioedema, normal voice Neck: full range of motion, supple/symm/no masses Respiratory: chest non-tender, lungs clear, normal breath sounds, speaking full sentences Cardiovascular #1: regular rate, rhythm, no edema Cardiovascular #2: 2+ carotid (R), 2+ carotid (L), 2+ radial (R), 2+ radial (L) , 2+ dorsalis pedis (R), 2+ dorsalis pedis (L) Gastrointestinal: normal bowel sounds, non tender, soft, non-distended, no guarding, no rebound Rectal: deferred Genitourinary: normal inspection, no CVA tenderness Musculoskeletal: back normal, normal range of motion, gait/station normal, tender - L knee Neurologic: alert, motor strength/tone normal, oriented x3, sensory intact, responsive, speech normal Psychiatric: judgement/insight normal, memory normal, mood/affect normal, no suicidal/homicidal ideation Reflexes: 3+ bicep (R), 3+ bicep (L), 3+ tricep (R), 3+ tricep (L), 3+ knee (R) , 3+ knee (L) Skin: no rash Lymphatic: no adenopathy Procedures Splinting Splinting : Consent: Verbal Pre-Made Type: NIGEL wrap Pre-Proc Neuro Vasc Exam: normal Post-Proc Neuro Vasc Exam: normal Patient Tolerated: Well Complications: None Medical Decision Making Diagnostic Impression: Primary Impression: Knee pain Qualified Codes: M25.562 - Pain in left knee Additional Impression: Encounter for medication refill ER Course Hospital Course 59-year-old female presents to ED complaining of left knee pain no trauma Differential diagnoses include: Fracture, dislocation, sprain, contusion, bursitis Clinical course Patient placed on stretcher. After initial history, physical exam reveals an middle-aged female in no acute distress. There is full range of motion to the left knee. No bruising or crepitus. Minimal swelling. Some tenderness noted. I discussed findings with patient. No history of fall. Unlikely fracture. I offered option for x-ray but she declined. More likely ligamentous. Placed in Nigel wrap. Safe for discharge with close outpatient follow-up. I will provide Ortho referral. Note patient also given refill of her psychiatric medications. Is unable to make appointment with her psychiatrist at this time Diagnosis - knee pain, encounter for medication refill stable and discharged to home with prescription for Tylenol. Followup with PMD/ ortho. Return to ED if symptoms recur or worsen Last Vital Signs Date Time Temp Pulse Resp B/P (MAP) Pulse Ox O2 Delivery O2 Flow Rate FiO2 01/03/20 13:18 98.2 74 18 134/79 98 Room Air Status: improved Disposition: HOME, SELF-CARE Condition: Stable Scripts Diclofenac Sodium (VOLTAREN) 100 Gm Gel..gram. 100 GM TP DAILY, #100 GM Prov: Bronson Kiser MD 01/03/20 Acetaminophen* (TYLENOL EXTRA STRENGTH*) 500 Mg Tablet 500 MG ORAL Q8H PRN for Prn Headache/Temp > 101, #30 TAB 0 Refills Prov: Bronson Kiser MD 01/03/20 Perphenazine/Amitriptyline Hcl (PERPHEN-AMITRIP 4 MG-25 MG TAB) 1 Each Tablet 1 EACH PO TID, #90 EA Prov: Bronson Kiser MD 01/03/20 Referrals: NON PHYSICIAN (PCP) [facility] Open 24 hour /7 days a week by Appointment Only [address] [place] [address] Patient Instructions: Knee Pain, [id number] Bronson Kiser MD January 06, 2020 06:30
== END 2020-01-03 13:18 | disposition home or self-care (01) ==
LOC: EMR 12:50
DX: M25.562 Pain in left knee (principal); Z76.0 Encounter for issue of repeat prescription; Z88.6 Allergy status to analgesic agent; Z88.0 Allergy status to penicillin
CPT/HCPCS: 99282

== ENCOUNTER 2020-03-12 11:46 | Emergency (ER) | payer MEDICAID ==
[~2020-03-12] VITALS: Ht 162.6 cm; Wt 78.9 kg
[~2020-03-12 11:46] MED LIST changes: +VOLTAREN100 G1 TP
--- NOTE | 2020-03-12 11:55 | NUR ---
ED Nurse Note: PT walked in to ED for C/P pain to bilateral knee pain x more than 2 weeks. pt denies any fall/ trauma.
--- NOTE | 2020-03-12 12:22 | NUR ---
ED Nurse Note: x ray being taken at bedside.
--- NOTE | 2020-03-12 12:48 | Emergency Room Report ---
History of Present Illness General Chief Complaint: Lower Extremity Injury Source: Patient Present Illness HPI 51-year-old female with history of depression arthritis here complaining of bilateral knee pain without any fall or injury. Reports that the pain has been ongoing for several months however the right knee has been more bothersome to her for the past few days. Denies any fall or injury. Both knees have effusion. Reports that she has been taking Advil and feels relieved to some extent. Patient reports her regular ibuprofen bothers her however she has been able to take Advil and Aleve. Also is requesting a refill of her depression medication. Reports that she last saw her psychiatrist and primary doctor several months ago has not followed up with denies any SI or HI. Patient requesting narcotic explained to her that for arthritis narcotics are not indicated. Denies any tingling or numbness. Denies any calf tenderness. 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 Patient is also requesting either a cane or a walker. Denies chest pain, shortness of breath, headache and dizziness. No calf tenderness noted. Homans sign is negative. Allergies: Coded Allergies: PENICILLIN G (Verified Allergy, Severe, RASH, 10/26/18) IBUPROFEN (Verified Allergy, Unknown, 10/26/18) COVID-19 Screening Contact w/high risk pt: No Recent Travel to affected area: No Experienced COVID-19 symptoms?: No COVID-19 Testing performed OPHTHALMIC SURGICAL ASSISTANT: No Patient History Past Medical History: see triage record Past Surgical History: none Pertinent Family History: none Now: No Immunizations: UTD Reviewed Nursing Documentation: PMH: Agreed; PSxH: Agreed Nursing Documentation-PMH Past Medical History: No Stated History Hx Neurological Problems: No - depression Review of Systems All Other Systems: negative except mentioned in HPI Physical Exam Vital Signs Date Time Temp Pulse Resp B/P (MAP) Pulse Ox O2 Delivery O2 Flow Rate FiO2 03/12/20 11:49 98.2 93 21 121/81 (94) 95 Room Air Sp02 EP Interpretation: reviewed, normal General Appearance: no apparent distress, alert, GCS 15, non-toxic Head: normocephalic, atraumatic Eyes: bilateral eye normal inspection, bilateral eye PERRL ENT: hearing grossly normal, normal pharynx, no angioedema, normal voice Neck: full range of motion, supple/symm/no masses Respiratory: chest non-tender, lungs clear, normal breath sounds, no rhonchi, no wheezing, speaking full sentences Cardiovascular #1: regular rate, rhythm, no edema, no murmur Cardiovascular #2: 2+ dorsalis pedis (R), 2+ dorsalis pedis (L) Gastrointestinal: normal bowel sounds, non tender, soft, non-distended, no guarding, no rebound Genitourinary: no CVA tenderness Musculoskeletal: back normal, digits/nails normal, no calf tenderness, swelling - Bilateral effusion knee Neurologic: alert, motor strength/tone normal, oriented x3, sensory intact, responsive, speech normal Psychiatric: judgement/insight normal, memory normal, mood/affect normal, no suicidal/homicidal ideation Skin: no rash Lymphatic: no adenopathy Procedures Splinting Splinting : Consent: Verbal Location: Left knee Pre-Made Type: knee immobilizer Pre-Proc Neuro Vasc Exam: normal Post-Proc Neuro Vasc Exam: normal Patient Tolerated: Well Complications: None Progress Walker was provided Medical Decision Making PA Attestation All my diagnosis and treatment plans were reviewed ad discussed with my supervising physician Dr. Chong Diagnostic Impression: Primary Impression: Knee effusion Additional Impressions: Arthritis Encounter for medication refill ER Course 51-year-old female with history of depression arthritis here complaining of bilateral knee pain without any fall or injury. Reports that the pain has been ongoing for several months however the right knee has been more bothersome to her for the past few days. Denies any fall or injury. Both knees have effusion. Reports that she has been taking Advil and feels relieved to some extent. Patient reports her regular ibuprofen bothers her however she has been able to take Advil and Aleve. Also is requesting a refill of her depression medication. Reports that she last saw her psychiatrist and primary doctor several months ago has not followed up with denies any SI or HI. Patient requesting narcotic explained to her that for arthritis narcotics are not indicated. Denies any tingling or numbness. Denies any calf tenderness. 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 Patient is also requesting either a cane or a walker. Denies chest pain, shortness of breath, headache and dizziness. No calf tenderness noted. Homans sign is negative. Ddx considered but are not limited to: Knee sprain, strain, fracture, contusion , meniscus tear injury, knee effusion, arthritis Vital signs: are WNL, pt. is afebrile H&PE are most consistent with: Knee effusion, arthritis, encounter for medication refill for depression ORDERS: Knee x-ray bilateral, Voltaren gel, naproxen, amitriptyline ER intervention: Knee immobilizer, walker was provided DISCHARGE: At this time pt. is stable for d/c to home. Will provide printed patient care instructions, and any necessary prescriptions. Care plan and follow up instructions have been discussed with the patient prior to discharge. Take medication as directed, follow-up primary care provider, if worsening symptom return to the emergency room. Also follow-up with instrument specialist for possible knee replacement needed. Patient agrees with this assessment. Other X-Ray Diagnostic Results Other X-Ray Diagnostic Results #1: X-Ray ordered: Left knee # of Views/Limited Vs Complete: 3 View Indication: Swelling EP Interpretation: Yes PA Xray: Interpretation reviewed, by supervising MD, and agrees with findings. Interpretation: no dislocation, no fractures, other - Effusion noted Impression: No acute disease Electronically Signed by: Blaire García PA-C Other X-Ray Diagnostic Results #2: X-Ray ordered: Right knee # of Views/Limited Vs Complete: 3 View Indication: Swelling EP Interpretation: Yes PA Xray: Interpretation reviewed, by supervising MD, and agrees with findings. Interpretation: no dislocation, no fractures, other - Knee effusion noted Impression: No acute disease Electronically Signed by: Blaire García PA-C Last Vital Signs Date Time Temp Pulse Resp B/P (MAP) Pulse Ox O2 Delivery O2 Flow Rate FiO2 03/12/20 11:49 98.2 93 21 121/81 (94) 95 Room Air Disposition: HOME, SELF-CARE Condition: Stable Scripts Naproxen* (NAPROXEN*) 500 Mg Tablet 500 MG ORAL TWICE A DAY, #30 TAB Prov: Blaire Contreras 03/12/20 Diclofenac Sodium (VOLTAREN) 100 Gm Gel..gram. 100 GM TP DAILY, #100 GM Prov: Blaire Contreras 03/12/20 Acetaminophen* (TYLENOL EXTRA STRENGTH*) 500 Mg Tablet 500 MG ORAL Q6H, #30 TAB 0 Refills Prov: Blaire Contreras 03/12/20 Perphenazine/Amitriptyline Hcl (PERPHEN-AMITRIP 4 MG-25 MG TAB) 1 Each Tablet 1 EACH PO TID for 5 Days, #15 TAB Prov: Blaire Contreras 03/12/20 Patient Instructions: Arthritis, [id number], Knee Effusion, [id number] Additional Instructions: Take medication as directed, follow-up with your primary care provider for referral to instrument specialist, also for more medication refill evaluated patient needs to see a psychiatrist or your primary care provider, if worsening symptoms return to the emergency room Blaire Contreras Mar 12, 2020 12:48
[2020-03-12] MEDS ORDERED: TYLENOL EXTRA500 MG ORAL (12:49)
[2020-03-12] MEDS ORDERED: NAPROXEN500 M2 ORAL (12:49)
[2020-03-12] MEDS ORDERED: VOLTAREN100 G1 TP (12:49)
[2020-03-12] MEDS ORDERED: PERPHEN-AMITRI1 EAC3 PO (12:49)
[2020-03-12 13:08] VITALS: BP 131/79
--- NOTE | 2020-03-12 13:09 | NUR ---
ER DISCHARGE NOTE: Patient is cleared to be discharged per ERMD, pt is aox4, on room air, with stable vital signs. pt was given dc and prescription instructions, pt was able to verbalize understanding, pt id band and iv site removed without complications. pt is able to ambulate with steady gait with cane and left knee immobilizer. pt took all belongings.
--- NOTE | 2020-03-12 17:14 | Diagnostic Imaging Report ---
Indication: Right knee pain Technique: 3 views of the right knee Comparison: 01/23/2015 Findings: There are extensive proliferative changes of all 3 joint compartments and some joint space narrowing, particularly of the patellofemoral compartment. No definite acute fractures or dislocations. No suprapatellar effusion. Findings have progressed since the previous exam Impression: Degenerative changes, as described. No definite acute bony trauma
--- NOTE | 2020-03-12 17:14 | Diagnostic Imaging Report ---
Indication: Knee pain Technique: 3 views of the left knee Comparison: None Findings: There are degenerative proliferative changes of all 3 joint compartments. There are severe degenerative narrowing of the patellofemoral joint, minimal narrowing of the medial compartment. There is marked joint surface irregularity of the knee joint. No acute fractures. No dislocations. No suprapatellar effusion. Impression: Degenerative changes. No acute bony trauma
== END 2020-03-12 13:09 | disposition home or self-care (01) ==
LOC: EMR 12:45
DX: M25.461 Effusion, right knee (principal); M25.462 Effusion, left knee; M19.90 Unspecified osteoarthritis, unspecified site; F32.9 Major depressive disorder, single episode, unspecified
CPT/HCPCS: 73562; Z7502; 99284

== ENCOUNTER 2020-05-24 11:13 | Emergency (ER) | payer MEDICAID ==
[~2020-05-24] VITALS: Ht 162.6 cm; Wt 77.1 kg
[~2020-05-24 11:13] MED LIST changes: +NAPROXEN500 M2 ORAL
[2020-05-24 11:33] VITALS: BP 127/80
[2020-05-24] MEDS ORDERED: PERPHEN-AMITRI1 EAC3 PO (11:45)
--- NOTE | 2020-05-24 11:45 | Emergency Room Report ---
History of Present Illness General Chief Complaint: Medication Refill Source: Patient Present Illness HPI 59-year-old female presents with medication refill, severity is mild, aggravated by not having her medications, alleviated by having her medications no SI HI patient presents for evaluation and treatment Allergies: Coded Allergies: PENICILLIN G (Verified Allergy, Severe, RASH, 10/26/18) IBUPROFEN (Verified Allergy, Unknown, 10/26/18) COVID-19 Screening Contact w/high risk pt: No Recent Travel to affected area: No Experienced COVID-19 symptoms?: No COVID-19 Testing performed PAIN MANAGEMENT NURSE PRACTITIONER: No Patient History Past Medical History: see triage record Last Menstrual Period: na Reviewed Nursing Documentation: PMH: Agreed; PSxH: Agreed Nursing Documentation-PMH Past Medical History: No History, Except For Hx Neurological Problems: No - depression Review of Systems All Other Systems: negative except mentioned in HPI Physical Exam Vital Signs Date Time Temp Pulse Resp B/P (MAP) Pulse Ox O2 Delivery O2 Flow Rate FiO2 05/24/20 11:30 97.7 84 16 127/80 (96) 98 Room Air General Appearance: well appearing, no apparent distress Head: normocephalic, atraumatic Eyes: bilateral eye PERRL, bilateral eye EOMI ENT: hearing grossly normal, normal voice Neck: full range of motion, supple Respiratory: no respiratory distress, speaking full sentences Neurologic: alert, normal gait Psychiatric: mood/affect normal Skin: no rash Medical Decision Making Diagnostic Impression: Primary Impression: Encounter for medication refill ER Course We will refill her amitriptyline Disposition home with return precautions no acute SI or HI Last Vital Signs Date Time Temp Pulse Resp B/P (MAP) Pulse Ox O2 Delivery O2 Flow Rate FiO2 05/24/20 11:33 97.7 88 16 127/80 98 Room Air Disposition: HOME, SELF-CARE Condition: Stable Scripts Perphenazine/Amitriptyline Hcl (PERPHEN-AMITRIP 4 MG-25 MG TAB) 1 Each Tablet 1 EACH PO TID, #90 TAB Prov: Dieudonne Norman MD 05/24/20 Referrals: [facility] Patient Instructions: Medicine Refill at the Emergency Department Additional Instructions: The patient was provided with discharge instructions, notified to follow-up with a primary care doctor and or specialist in the next 24-48 hours, and to return to the ED if they have worsening of their symptoms. Please note that this report is being documented using [employer] technology. This can lead to erroneous entry secondary to incorrect interpretation by the dictating instrument. Dieudonne Norman MD May 24, 2020 11:45
== END 2020-05-24 11:55 | disposition home or self-care (01) ==
LOC: EMR 11:40
DX: Z76.0 Encounter for issue of repeat prescription (principal); F32.9 Major depressive disorder, single episode, unspecified; Z88.0 Allergy status to penicillin; Z88.6 Allergy status to analgesic agent
CPT/HCPCS: 99282

== ENCOUNTER 2020-07-04 11:50 | Emergency (ER) | payer MEDICAID ==
[~2020-07-04] VITALS: Ht 162.6 cm; Wt 77.1 kg
[2020-07-04 12:09] VITALS: BP 152/88
--- NOTE | 2020-07-04 12:16 | Emergency Room Report ---
History of Present Illness General Chief Complaint: Medication Refill Source: Patient Present Illness HPI 59-year-old female with history of anxiety and depression here requesting a medication refill. Patient reports that she has an appointment with psychiatrist in 2 weeks. Patient has been taking his medication for a long time. Denies any SI and HI. Patient takes amitriptyline. Reports that she took the last dose yesterday. Has not taken any other medication for anxiety or depression. Denies any alcohol intake, drug use, no other associate symptoms. Allergies: Coded Allergies: PENICILLIN G (Verified Allergy, Severe, RASH, 10/26/18) IBUPROFEN (Verified Allergy, Unknown, 10/26/18) COVID-19 Screening COVID-19 risk:Contact w/high r: No COVID-19 risk:Travel to affect: No Has patient experienced sharpe: No COVID-19 Testing performed PICKING TABLE WORKER: No Patient History Past Medical History: see triage record Past Surgical History: none Family History: none Now: No Immunizations: UTD Reviewed Nursing Documentation: PMH: Agreed; PSxH: Agreed Nursing Documentation-PMH Hx Neurological Problems: No - depression Review of Systems All Other Systems: negative except mentioned in HPI Physical Exam Vital Signs Date Time Temp Pulse Resp B/P (MAP) Pulse Ox O2 Delivery O2 Flow Rate FiO2 07/04/20 11:54 98.4 80 16 152/88 (109) 97 Room Air Sp02 EP Interpretation: reviewed, normal General Appearance: alert/responsive, no apparent distress, GCS 15, non-toxic Head: atraumatic Eyes: PERRL, lids + conjunctiva normal ENT: hearing intact, no angioedema Neck: supple/symm/no masses, no meningismus Respiratory: effort normal, no wheezing, chest symmetrical Cardiovascular: regular rate, rhythm, no edema Gastrointestinal: non-tender, no mass, non-distended, no rebound/guarding, normal bowel sounds Musculoskeletal: gait & station normal Neurologic: oriented x3, sensory intact, normal speech Psychiatric: normal inspection, judgment & insight normal, mood normal, no suicidal/homicidal ideation Skin: no rash, well hydrated Lymphatic: normal inspection Medical Decision Making PA Attestation All my diagnosis and treatment plans were reviewed ad discussed with my supervising physician Dr. Kiser Diagnostic Impression: Primary Impression: Encounter for medication refill Additional Impression: Anxiety ER Course 59-year-old female with history of anxiety and depression here requesting a medication refill. Patient reports that she has an appointment with psychiatrist in 2 weeks. Patient has been taking his medication for a long time. Denies any SI and HI. Patient takes amitriptyline. Reports that she took the last dose yesterday. Has not taken any other medication for anxiety or depression. Denies any alcohol intake, drug use, no other associate symptoms. Ddx considered but are not limited to: generalized anxiety disorder, panic attack, depression with psychotic feature, bipolar disorder, drug overdose Vital signs: are WNL, pt. is afebrile H&PE are most consistent with: Medication refill for anxiety ORDERS: Amitriptyline perphenazine 2-week supply ED INTERVENTIONS: None required at this time. DISCHARGE: At this time pt. is stable for d/c to home. Will provide printed patient care instructions, and any necessary prescriptions. Care plan and follow up instructions have been discussed with the patient prior to discharge. Given list of psychiatric facilities to patient, patient to follow-up with psychiatrist, if worsening symptoms return to the emergency room Last Vital Signs Date Time Temp Pulse Resp B/P (MAP) Pulse Ox O2 Delivery O2 Flow Rate FiO2 07/04/20 12:09 98.4 87 16 152/88 97 Room Air Disposition: HOME, SELF-CARE Condition: Stable Scripts Perphenazine/Amitriptyline Hcl (PERPHEN-AMITRIP 4 MG-25 MG TAB) 1 Each Tablet 1 EACH PO TID for 14 Days, #42 TAB Prov: Blaire Contreras 07/04/20 Patient Instructions: Medicine Refill at the Emergency Department Additional Instructions: Take medication as directed, follow with psychiatrist, worsening symptoms return to the emergency Blaire Contreras Jul 04, 2020 12:16
[2020-07-04] MEDS ORDERED: PERPHEN-AMITRI1 EAC3 PO (12:17)
[2020-07-04 12:25] VITALS: BP 152/88
== END 2020-07-04 12:25 | disposition home or self-care (01) ==
LOC: EMR 12:24
DX: F41.9 Anxiety disorder, unspecified (principal); Z76.0 Encounter for issue of repeat prescription; Z88.6 Allergy status to analgesic agent; Z88.0 Allergy status to penicillin
CPT/HCPCS: 99282

== ENCOUNTER 2020-07-23 10:45 | Emergency (ER) | payer MEDICAID ==
[~2020-07-23] VITALS: Ht 162.6 cm; Wt 75.7 kg
[2020-07-23 11:05] VITALS: BP 132/87
--- NOTE | 2020-07-23 11:05 | NUR ---
ED Nurse Note: pt walked in from home needing med refill for Perphenazine-AMitriptyline. pt reports she has been without it for 7 days. pt also c/o 06/16 arthritis pain. AAOx4, verbally responsive. VSS. ERMD at bedside.
[2020-07-23] MEDS ORDERED: PERPHEN-AMITRI1 EAC3 PO (11:08)
[2020-07-23] MEDS ORDERED: traMADol 50mg tab ORAL ONE (11:15)
[2020-07-23 11:18] VITALS: BP 132/87
--- NOTE | 2020-07-23 11:18 | NUR ---
ED Nurse Note: Pt cleared by ERMD for discharge. DC instructions/prescription was given and explained to pt and verbalized understanding of teachings. All medical deviecs such as ID band removed. Pt is AAO x4, ambulatory and left with all personal belongings.
--- NOTE | 2020-07-23 11:20 | Emergency Room Report ---
History of Present Illness General Chief Complaint: Medication Refill Source: Patient Present Illness HPI Patient is a 59-year-old female past medical history of psychiatric disorder and arthritis who presents to the ER stating that she has run out of her medication for the past week. Patient states that she is tried to call her doctor but has been leaving messages. She denies any suicidal or homicidal ideation. She denies any fever or chills. She complains of generalized body aches that she attributes to her arthritis. Patient states that she would like a pill for pain but is allergic to ibuprofen. She denies any trauma. She denies any chest pain or shortness of breath. 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: No Patient History Reviewed Nursing Documentation: PMH: Agreed; PSxH: Agreed Nursing Documentation-PMH Hx Neurological Problems: No - depression Review of Systems All Other Systems: negative except mentioned in HPI Physical Exam Vital Signs Date Time Temp Pulse Resp B/P (MAP) Pulse Ox O2 Delivery O2 Flow Rate FiO2 07/23/20 10:57 98.4 79 15 132/87 (102) 95 Room Air Sp02 EP Interpretation: reviewed, normal General Appearance: no apparent distress, alert, GCS 15, non-toxic Head: normocephalic, atraumatic Eyes: bilateral eye normal inspection, bilateral eye PERRL ENT: hearing grossly normal, normal pharynx, no angioedema, normal voice Neck: full range of motion, supple/symm/no masses Respiratory: chest non-tender, lungs clear, normal breath sounds, speaking full sentences Cardiovascular #1: regular rate, rhythm, no edema Gastrointestinal: normal bowel sounds, non tender, soft, non-distended, no guarding, no rebound Rectal: deferred Musculoskeletal: normal range of motion Neurologic: tray setter III-XII nml as tested, oriented x3 Psychiatric: no suicidal/homicidal ideation Skin: no rash Lymphatic: no adenopathy Medical Decision Making Diagnostic Impression: Primary Impression: Encounter for medication refill Additional Impression: Arthritis ER Course After discussing risks and benefits of further diagnostics, treatment plans, as well as indications for and risks of admission, the patient is agreeable to being discharged home. I have explained that their evaluation and treatment in the emergency department today is an important step towards them achieving better health but that their evaluation today is not intended to replace further evaluation and treatment by a physician in their local clinic. I have explained that while the current findings suggest no immediate life threatening emergency they will require further evaluation and treatment by a physician of their choice in their area. They understand that it will be necessary for them to review the final reports of their ED visit with their clinic physician. We have reviewed indications for return to the Emergency Department. I have explained that additional time may need to pass and/or additional testing as an outpatient may be necessary before a definitive diagnosis can be made. They tell me they are willing to follow up as instructed within the timeframe I recommend. They appear to understand what we discussed. Additionally they understand that if they are unable to be seen by an outpatient physician they are welcome, and in fact should, return to the Emergency Department for a repeat evaluation. The patient is stable at time of discharge. Last Vital Signs Date Time Temp Pulse Resp B/P (MAP) Pulse Ox O2 Delivery O2 Flow Rate FiO2 07/23/20 10:57 98.4 79 15 132/87 (102) 95 Room Air Disposition: HOME, SELF-CARE Condition: Stable Scripts Perphenazine/Amitriptyline Hcl (PERPHEN-AMITRIP 4 MG-25 MG TAB) 1 Each Tablet 1 EACH PO TID for 14 Days, #42 TAB Prov: Loraine Young M.D. 07/23/20 [facility]: [facility] - Peds ER - Patient Instructions: Medicine Refill at the Emergency Department Additional Instructions: The patient was provided with discharge instructions, notified to follow-up with a primary care doctor and or specialist in the next 24-48 hours, and to return to the ED if they have worsening of their symptoms. Please note that this report is being documented using [employer] technology. This can lead to erroneous entry secondary to incorrect interpretation by the dictating instrument. Loraine Young M.D. Jul 23, 2020 11:20
== END 2020-07-23 11:18 | disposition home or self-care (01) ==
LOC: EMR 11:10
DX: Z76.0 Encounter for issue of repeat prescription (principal); M19.90 Unspecified osteoarthritis, unspecified site; Z88.0 Allergy status to penicillin; Z88.6 Allergy status to analgesic agent
CPT/HCPCS: 99282

== ENCOUNTER 2020-08-13 11:27 | Emergency (ER) | payer MEDICAID ==
[~2020-08-13] VITALS: Ht 162.6 cm; Wt 75.7 kg
[2020-08-13 12:02] VITALS: BP 159/94
--- NOTE | 2020-08-13 12:03 | NUR ---
ED Nurse Note:pt. came fro anidepressant med refill
--- NOTE | 2020-08-13 12:08 | Emergency Room Report ---
History of Present Illness General Chief Complaint: Medication Refill Source: Patient Present Illness HPI 59-year-old female with history of depression and allergies here requesting medication refill for her depression also a prescription for Benadryl due to her allergies reports that she cannot find Benadryl from any store. Patient has been here multiple times for refill of depression medication and has been tolerating the need to follow-up with psychiatrist. Patient reports that she has an upcoming appointment with a new psychiatrist however is aware after I notified her that we will not be writing 1 more week of medication refill as she has been getting this medication from us refilled repeatedly in the past 3 months and at this time it is not advised to continue to refill this medication as patient is to be reevaluated for depression by a psychiatrist. Patient denies any SI and HI. Denies cough and congestion. Allergies: Coded Allergies: PENICILLIN G (Verified Allergy, Severe, RASH, 10/26/18) IBUPROFEN (Verified Allergy, Unknown, 10/26/18) COVID-19 Screening Contact w/high risk pt: No Recent Travel to affected area: No Experienced COVID-19 symptoms?: No COVID-19 Testing performed THIRD MILLER: No Patient History Past Medical History: see triage record Past Surgical History: none Pertinent Family History: none Now: No Immunizations: UTD Reviewed Nursing Documentation: PMH: Agreed; PSxH: Agreed Nursing Documentation-PMH Past Medical History: No History, Except For Hx Neurological Problems: No - depression Review of Systems All Other Systems: negative except mentioned in HPI Physical Exam Vital Signs Date Time Temp Pulse Resp B/P (MAP) Pulse Ox O2 Delivery O2 Flow Rate FiO2 08/13/20 11:42 97.3 71 16 159/94 (115) 98 Room Air Sp02 EP Interpretation: reviewed, normal General Appearance: well appearing, no apparent distress Head: normocephalic, atraumatic ENT: hearing grossly normal, normal voice Neck: full range of motion, supple Respiratory: no respiratory distress, speaking full sentences Cardiovascular #1: regular rate, rhythm Gastrointestinal: non-distended Rectal: deferred Musculoskeletal: gait/station normal Neurologic: alert, oriented Psychiatric: judgement/insight normal, memory normal, mood/affect normal Skin: no rash Lymphatic: no adenopathy Medical Decision Making PA Attestation All diagnoses and treatment plans were reviewed and discussed with my supervising physician Dr. Garsia Diagnostic Impression: Primary Impression: Encounter for medication refill Additional Impressions: Depression Allergy ER Course 59-year-old female with history of depression and allergies here requesting me dication refill for her depression also a prescription for Benadryl due to her allergies reports that she cannot find Benadryl from any store. Patient has been here multiple times for refill of depression medication and has been tolerating the need to follow-up with psychiatrist. Patient reports that she has an upcoming appointment with a new psychiatrist however is aware after I notified her that we will not be writing 1 more week of medication refill as she has been getting this medication from us refilled repeatedly in the past 3 months and at this time it is not advised to continue to refill this medication as patient is to be reevaluated for depression by a psychiatrist. Patient denies any SI and HI. Denies cough and congestion. Ddx considered but are not limited to: generalized anxiety disorder, panic attack, depression with psychotic feature, bipolar disorder, drug overdose Vital signs: are WNL, pt. is afebrile H&PE are most consistent with: Medication refill for depression and allergies ORDERS perphenazine amitriptyline, Benadryl ED INTERVENTIONS: None required at this time. The medication was provided patient advised to follow-up with psychiatrist given list of mental health facilities for patient to follow-up with, if worsening s ymptoms return to the emergency room DISCHARGE: At this time pt. is stable for d/c to home. Will provide printed patient care instructions, and any necessary prescriptions. Care plan and follow up instructions have been discussed with the patient prior to discharge. Last Vital Signs Date Time Temp Pulse Resp B/P (MAP) Pulse Ox O2 Delivery O2 Flow Rate FiO2 08/13/20 12:02 97.3 76 16 159/94 98 Room Air Disposition: HOME, SELF-CARE Condition: Stable Scripts Diphenhydramine Hcl (BENADRYL ALLERGY) 25 Mg Tablet 25 MG PO DAILY, #3 TAB Prov: Blaire Contreras 08/13/20 Perphenazine/Amitriptyline Hcl (PERPHEN-AMITRIP 4 MG-25 MG TAB) 1 Each Tablet 1 EACH PO TID for 7 Days, #21 TAB Prov: Blaire Contreras 08/13/20 Patient Instructions: Medicine Refill at the Emergency Department Blaire Contreras Aug 13, 2020 12:08
[2020-08-13] MEDS ORDERED: PERPHEN-AMITRI1 EAC3 PO (12:09)
[2020-08-13] MEDS ORDERED: BENADRYL ALLERG25 M1 PO (12:09)
--- NOTE | 2020-08-13 12:15 | NUR ---
ED Nurse Note: Pt cleared by health care Provider for discharge. DC instructions/prescription was given and explained to pt and verbalized understanding of teachings. All medical deviecs such as ID band removed. Pt is AAO x4, ambulatory and left with all personal belongings.
== END 2020-08-13 12:15 | disposition home or self-care (01) ==
LOC: EMR 12:15
DX: J30.2 Other seasonal allergic rhinitis (principal); F32.9 Major depressive disorder, single episode, unspecified; Z76.0 Encounter for issue of repeat prescription; Z88.6 Allergy status to analgesic agent; Z88.0 Allergy status to penicillin
CPT/HCPCS: 99282

== ENCOUNTER 2020-09-27 12:53 | Emergency (ER) | payer MEDICAID ==
[~2020-09-27] VITALS: Ht 162.6 cm; Wt 75.7 kg
[~2020-09-27 12:53] MED LIST changes: +BENADRYL ALLERG25 M1 PO
[2020-09-27 13:43] VITALS: BP 140/84
--- NOTE | 2020-09-27 13:53 | Emergency Room Report ---
History of Present Illness General Chief Complaint: Pain Source: Patient Present Illness HPI 60-year-old female with history of arthritis as well as depression anxiety currently taking Advil and perphenazine/amitriptyline has been here multiple times for refill of this medication here requesting another refill and saying that she has an appoint with psychiatrist in 1 week. However patient has been saying that a lot in the past. Also reports that she now has generalized body ache and reports that he is because of her arthritis. Reports that she cannot take Naprosyn. Denies any cough or congestion, urinary symptoms, diarrhea, shortness of breath. Appears to be stable with stable in size. 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 COVID-19 Screening: Negative COVID-19 COVID-19 Testing Source: last month Patient History Past Medical History: see triage record Past Surgical History: none Pertinent Family History: none Now: No Immunizations: UTD Reviewed Nursing Documentation: PMH: Agreed; PSxH: Agreed Nursing Documentation-PMH Past Medical History: No History, Except For Hx Cardiac Problems: No - arthritis Hx Neurological Problems: No - depression Review of Systems All Other Systems: negative except mentioned in HPI Physical Exam Vital Signs Date Time Temp Pulse Resp B/P (MAP) Pulse Ox O2 Delivery O2 Flow Rate FiO2 09/27/20 13:32 97.9 69 20 140/84 (102) 97 Room Air Sp02 EP Interpretation: reviewed, normal General Appearance: no apparent distress, alert, GCS 15, non-toxic Head: normocephalic, atraumatic Eyes: bilateral eye normal inspection, bilateral eye PERRL ENT: hearing grossly normal, normal pharynx, no angioedema, normal voice Neck: full range of motion, supple/symm/no masses Respiratory: chest non-tender, lungs clear, normal breath sounds, speaking full sentences Cardiovascular #1: regular rate, rhythm, no edema Cardiovascular #2: 2+ carotid (R), 2+ carotid (L), 2+ radial (R), 2+ radial (L), 2+ dorsalis pedis (R), 2+ dorsalis pedis (L) Gastrointestinal: normal bowel sounds, non tender, soft, non-distended, no guarding, no rebound Genitourinary: no CVA tenderness Musculoskeletal: back normal, digits/nails normal, no calf tenderness Neurologic: alert, motor strength/tone normal, oriented x3, sensory intact, responsive, speech normal Psychiatric: judgement/insight normal, memory normal, mood/affect normal, no suicidal/homicidal ideation Skin: no rash Lymphatic: no adenopathy Medical Decision Making PA Attestation All my diagnosis and treatment plans were reviewed ad discussed with my supervising physician Dr. Chong Diagnostic Impression: Primary Impression: Arthritis Additional Impression: Encounter for medication refill ER Course 60-year-old female with history of arthritis as well as depression anxiety currently taking Advil and perphenazine/amitriptyline has been here multiple times for refill of this medication here requesting another refill and saying that she has an appoint with psychiatrist in 1 week. However patient has been saying that a lot in the past. Also reports that she now has generalized body ache and reports that he is because of her arthritis. Reports that she cannot take Naprosyn. Denies any cough or congestion, urinary symptoms, diarrhea, shortness of breath. Appears to be stable with stable in size. Ddx considered but are not limited to: generalized anxiety disorder, panic attack, depression with psycotic featurs, bipolar disorder, drug overdose Vital signs: are WNL, pt. is afebrile H&PE are most consistent with: Medication refill for anxiety, arthritis ORDERS: Naprosyn,perphenazine/amitriptyline ED INTERVENTIONS: None required at this time. DISCHARGE: At this time pt. is stable for d/c to home. Will provide printed patient care instructions, and any necessary prescriptions. Care plan and follow up instructions have been discussed with the patient prior to discharge. Gave a 7-day supply of the anxiety medication, advised patient to follow-up with psychiatrist, take medication as directed, if worsening symptoms return to the emergency room Last Vital Signs Date Time Temp Pulse Resp B/P (MAP) Pulse Ox O2 Delivery O2 Flow Rate FiO2 09/27/20 13:43 97.9 89 20 140/84 97 Room Air Disposition: HOME, SELF-CARE Condition: Stable Scripts Naproxen* (NAPROXEN*) 500 Mg Tablet 500 MG ORAL TWICE A WEEK, #60 TAB 0 Refills Prov: Blaire Contreras 09/27/20 Perphenazine/Amitriptyline Hcl (PERPHEN-AMITRIP 4 MG-25 MG TAB) 1 Each Tablet 1 EACH PO TID for 7 Days, #21 TAB Prov: Blaire Contreras 09/27/20 Referrals: NON PHYSICIAN (PCP) Patient Instructions: Arthritis, [id number] Additional Instructions: Take medication as directed, follow-up with your primary care provider, worsening symptoms return to the emergency room Blaire Contreras Sep 27, 2020 13:53
[2020-09-27] MEDS ORDERED: NAPROXEN500 M2 ORAL (13:54)
[2020-09-27] MEDS ORDERED: PERPHEN-AMITRI1 EAC3 PO (13:54)
[2020-09-27 14:15] VITALS: BP 140/84
== END 2020-09-27 14:15 | disposition home or self-care (01) ==
LOC: EMR 13:26
DX: Z76.0 Encounter for issue of repeat prescription (principal); M19.90 Unspecified osteoarthritis, unspecified site; F41.9 Anxiety disorder, unspecified; Z88.0 Allergy status to penicillin; Z88.6 Allergy status to analgesic agent
CPT/HCPCS: 99282

== ENCOUNTER 2020-10-04 09:21 | Emergency (ER) | payer MEDICAID ==
[~2020-10-04] VITALS: Ht 162.6 cm; Wt 77.1 kg
[2020-10-04] MEDS ORDERED: PERPHEN-AMITRI1 EAC3 PO (09:45)
[2020-10-04] MEDS ORDERED: BENADRYL ALLERG25 M1 PO (09:45)
--- NOTE | 2020-10-04 09:51 | Emergency Room Report ---
History of Present Illness General Chief Complaint: Medication Refill Source: Patient Present Illness HPI Disclaimer: Please note that this report is being documented using [employer] technology. This can lead to erroneous entry secondary to incorrect interpretation by the dictating instrument. HPI: 60-year-old female presents for medication refill. History of depression and has been taking amitriptyline/perphenazine for many years. She was following with a psychiatrist in the [place] and then has bounced around to multiple clinics. She states she missed her last clinic appointment because the line was too long and she did not want a wait. She rounded of her medications 4 days ago. She reports baseline depression but denies suicidality, homicidality, changes in sleeping or eating patterns or any other changes in her health. Otherwise in her usual state of health. She states her son will provide her with health insurance to see a private psychiatrist next week when he returns from deployment. No other complaints from patient at this time. Also asking for prescription for Benadryl for seasonal allergies. She states she cannot afford to buy them OTC. PMH: Depression PSH: Reviewed Allergies: Penicillin Social Hx: Reviewed Allergies: Coded Allergies: PENICILLIN G (Verified Allergy, Severe, RASH, 10/26/18) IBUPROFEN (Verified Allergy, Unknown, 10/26/18) COVID-19 Screening Contact w/high risk pt: No Recent Travel to affected area: No Experienced COVID-19 symptoms?: No COVID-19 Testing performed ACCOUNT ANALYST: No Nursing Documentation-PMH Past Medical History: No History, Except For Hx Cardiac Problems: No - arthritis Hx Neurological Problems: No - depression Review of Systems All Other Systems: negative except mentioned in HPI Physical Exam Vital Signs Date Time Temp Pulse Resp B/P (MAP) Pulse Ox O2 Delivery O2 Flow Rate FiO2 10/04/20 09:33 97.9 76 16 136/91 (106) 98 Room Air General: Awake and alert, no acute distress HEENT: NC/AT. EOMI. Resp: Normal work of breathing Skin: Intact. No abrasions, laceration or rash over the exposed skin MSK: Normal tone and bulk. Moving all extremities. No obvious deformity. Neuro: Awake and alert. Mentating appropriately. Denies SI/HI Medical Decision Making Diagnostic Impression: Primary Impression: Encounter for medication refill ER Course Is a 60-year-old female presenting for medication refill. Discussed that she needs to be followed by psychiatry long-term given the tricyclic antidepressant she is on and cause metabolic abnormalities. I have agreed to a 5-day refill told her that no further refills will be provided from the emergency department. Encouraged her to follow-up with psychiatrist and/or clinic as soon as possible. She understands and agrees with this treatment plan. Last Vital Signs Date Time Temp Pulse Resp B/P (MAP) Pulse Ox O2 Delivery O2 Flow Rate FiO2 10/04/20 09:33 97.9 76 16 136/91 (106) 98 Room Air Disposition: HOME, SELF-CARE Condition: Stable Scripts Diphenhydramine Hcl (BENADRYL ALLERGY) 25 Mg Tablet 25 MG PO DAILY, #10 TAB Prov: Giovani Garsia MD 10/04/20 Perphenazine/Amitriptyline Hcl (PERPHEN-AMITRIP 4 MG-25 MG TAB) 1 Each Tablet 1 EACH PO TID for 5 Days, #15 TAB Prov: Giovani Garsia MD 10/04/20 Referrals: [facility] Psych ER - Peds ER - [facility] Intake Hotline - Patient Instructions: Medicine Refill at the Emergency Department Additional Instructions: You need to follow-up with psychiatrist or psychiatric clinic as soon as possible. Please follow-up with your primary care doctor in the next 1 to 3 da ys to discuss this emergency department visit and for reevaluation. If you have any new or worsening symptoms please return to the emergency department for reevaluation. Please note that this report is being documented using [employer] technology. This can lead to erroneous entry secondary to incorrect interpretation by the dictating instrument. Giovani Garsia MD Oct 04, 2020 09:51
[2020-10-04 09:54] VITALS: BP 136/91
== END 2020-10-04 09:47 | disposition home or self-care (01) ==
LOC: EMR 09:40
DX: Z76.0 Encounter for issue of repeat prescription (principal); F32.9 Major depressive disorder, single episode, unspecified; Z79.899 Other long term (current) drug therapy; Z88.0 Allergy status to penicillin; Z88.6 Allergy status to analgesic agent
CPT/HCPCS: 99282